=== PATIENT | male | born 1995 | race Caucasian/White ===

== ENCOUNTER 2025-06-05 18:24 | Emergency (ER) | payer SELFPAY ==
[2025-06-05 18:44] LABS: BASOPHILS ABSOLUTE AUTO 0.06 K/uL (0.00-0.20); BASOPHILS PERCENT AUTO 1.1 % (0.0-2.0); EOSINOPHILS ABSOLUTE AUTO 0.28 K/uL (0.00-0.50); EOSINOPHILS PERCENT AUTO 5.0 % (0.0-5.0); IMMATURE GRAN ABSOLUTE AUTO 0.00 10^3/uL (0.00-0.04); IMMATURE GRAN PERCENT AUTO 0.0 % (0.0-0.4); LYMPHOCYTES ABSOLUTE AUTO 2.34 K/uL (0.50-3.50); LYMPHOCYTES PERCENT AUTO 41.9 % (10.0-50.0); MONOCYTES ABSOLUTE AUTO 0.49 K/uL (0.00-1.00); MONOCYTES PERCENT AUTO 8.8 % (2.0-14.0); NEUTROPHILS ABSOLUTE AUTO 2.41 K/uL (1.40-7.00); NEUTROPHILS PERCENT AUTO 43.2 % (45.0-80.0); PLATELET COUNT,PLT 303 K/uL (150-350); RED BLOOD CELL COUNT 4.56 M/uL (4.33-5.41); RED CELL DISTRIBUTION WIDTH 11.5 % (11.2-14.1); WHITE BLOOD CELL COUNT,WBC 5.6 K/uL (4.0-10.2)
[2025-06-05 19:04] LABS: ALANINE AMINOTRANSFERASE,ALT 23.0 U/L (12-78); ASPARTATE AMNIOTRANSFERASE,AST 17.0 U/L (15-37); BILIRUBIN TOTAL 0.4 mg/dL (0.2-1.0); BLOOD UREA NITROGEN,BUN 17.0 mg/dL (7-18); CARBON DIOXIDE,CO2 31.9 mmol/L (21.0-32.0); CHLORIDE,CL 106.0 mmol/L (98-107); CREATININE 1.13 mg/dL (0.51-1.17); EST CRCL DRUG DOSING (CG) 117.58 mL/min; ESTIMATED GFR 90.0 mL/min (>=60); GLUCOSE RANDOM 73.0 mg/dL (70-99); POTASSIUM,K 4.5 mmol/L (3.5-5.1); PROTEIN TOTAL,TP 6.8 g/dL (6.4-8.2); SODIUM,NA 144.0 mmol/L (136-145)
== END 2025-06-05 19:20 | disposition home or self-care (01) ==
LOC: LL.ED 18:24
DX: S90.32XA Contusion of left foot, initial encounter (principal); S90.31XA Contusion of right foot, initial encounter; M72.2 Plantar fascial fibromatosis; F17.210 Nicotine dependence, cigarettes, uncomplicated; X58.XXXA Exposure to other specified factors, initial encounter; Y93.89 Activity, other specified
CPT/HCPCS: 36415; 80053; 84550; 85025; 86140; 99283; A9270-GY